=== PATIENT | female | born 1965 | race Caucasian/White ===

== ENCOUNTER 2017-07-29 09:31 | Emergency (ER) | payer BC ==
[~2017-07-29] VITALS: Ht 154.9 cm; Wt 66.0 kg
[2017-07-29 09:37] VITALS: Ht 154.9 cm; Wt 66.0 kg
[2017-07-29] MEDS ORDERED: AZIT250T94 PO (10:56)
[2017-07-29] MEDS ORDERED: UDROBDM PO (10:56)
[2017-07-29] MEDS ORDERED: IBUP-1542 PO (10:56)
--- NOTE | 2017-07-29 11:00 | ERD ---
ER Documentation Chief Complaint Date/Time DATE: 07/29/17 TIME: 10:58 Chief Complaint Complains of a cough x 1 week HPI This 52-year-old female complains of a productive cough last week. She has swelling but no measured fever or chills. She has chest pain, vomiting, abdominal pain. Is a non-smoker denies history of asthma or lung problems. ROS All systems reviewed and are negative except as per history of present illness. Medications Home Meds Active Scripts Guaifenesin-Dextromethorphan* (Robitussin* DM) 100MG/10MG/5ML Syrup, 5 ML PO Q4H Y for COUGH for 5 Days, ML 6 OZ Prov:PASCALE RYDER MD 07/29/17 Ibuprofen* (Motrin*) 600 Mg Tab, 600 MG PO Q6, #15 TAB Prov:PASCALE RYDER MD 07/29/17 Azithromycin* (Zithromax*) 250 Mg Tablet, 250 MG PO .ZPACK DIRECTED, #6 TAB TAKE 500 MG (2 TABS) THE FIRST DAY THEN 250 MG (1 TAB) DAYS 2-5 Prov:PASCALE RYDER MD 07/29/17 PMhx/Soc Hx Alcohol Use: No Hx Substance Use: No Hx Tobacco Use: No Smoking Status: Never smoker Physical Exam Vitals Vital Signs Date Time Temp Pulse Resp B/P Pulse Ox O2 Delivery O2 Flow Rate FiO2 07/29/17 09:37 97.3 89 20 148/83 98 Physical Exam Const: []Alert, [id number] per Head: Atraumatic Eyes: Normal Conjunctiva ENT: Normal External Ears, Nose and Mouth. Neck: Full range of motion..~ No meningismus. Resp: Clear to auscultation bilaterally Rales wheezing or retractions Cardio: Regular rate and rhythm, no murmurs Abd: Soft, non tender, non distended. Normal bowel sounds Skin: No petechiae or rashes Back: No midline or flank tenderness Ext: No cyanosis, or edema Neur: Awake and alert Psych: Normal Mood and Affect Procedures/MDM Patient presents with productive cough last week. Symptoms do not suggest hypoxemia, respiratory stress, pneumonia, PE, acute coronary syndrome. She will treated with Zithromax, Robitussin and ibuprofen. The patient was stable with no new complaints during the ER course. Clinically, there is no current evidence to suggest meningitis, sepsis, acute abdomen, pneumonia, acute coronary syndrome, pulmonary embolism, or any other emergent condition appearing to require further evaluation or hospitalization. The patient should certainly return for any new or worsening symptoms per the aftercare instructions. They should otherwise follow-up with her primary care doctor for reevaluation this week. Departure Diagnosis: Primary Impression: Cough Condition: Stable Patient Instructions: Acute Bronchitis Additional Instructions: Cheque otro vez con lucio doctor primario en el proximo chapman or regresa para mas o nueva simptomas. PASCALE RYDER MD Jul 29, 2017 11:00
== END 2017-07-29 11:26 | disposition home or self-care (01) ==
LOC: FTE 09:31
DX: R05 Cough (principal)
CPT/HCPCS: 99283

== ENCOUNTER 2019-09-17 18:33 | Emergency (ER) | payer BC ==
[~2019-09-17] VITALS: Wt 69.5 kg
[~2019-09-17 18:33] MED LIST: AZIT250T PO; BEN25 PO; CLOT30CR24 TOP; GUAI5SYR2 PO; IBUP-1542 PO; PHEN-537 PO
[2019-09-17] MEDS ORDERED: DIPHENHYDRAMINE 25 MG CAP PO ONE (21:30)
[2019-09-17] MEDS ORDERED: PHENAZOPYRIDINE 100 MG TAB PO ONE (21:30)
[2019-09-17 22:07] VITALS: BP 139/80; PULSE 68; RESP 16
== END 2019-09-17 22:09 | disposition home or self-care (01) ==
LOC: FTE 18:33
DX: N90.89 Other specified noninflammatory disorders of vulva and perineum (principal); R30.0 Dysuria; I10 Essential (primary) hypertension
CPT/HCPCS: 81001; 84703; 87086; Z7610; 99283